=== PATIENT | female | born 1955 | race Caucasian/White ===

== ENCOUNTER 2022-05-25 11:53 | Outpatient (CLI) | payer MEDICARE, SELFPAY ==
[2022-05-25 13:48] LABS: Basophils Absolute Auto 0.06 K/uL (0.00-0.30); Basophils Percent Auto 0.8 % (0.0-3.0); Eosinophils Absolute Auto 0.39 K/uL (0.00-0.50); Hematocrit 44.9 % (33.0-51.0); Hemoglobin* 14.5 gm/dL (12.0-16.0); Immature Granulocytes Abs Auto 0.01 K/uL (0.00-0.30); Lymphocytes Absolute Auto 2.61 K/uL (0.90-2.90); Lymphocytes Percent Auto 33.4 % (20-44); Mean Corpuscular HGB Conc 32 gm/dL (32-36); Mean Corpuscular Hemoglobin 29 pg (26-34); Mean Corpuscular Volume 89 fL (80-100); Monocytes Percent Auto 8.1 % (0.0-11.0); Neutrophils Absolute Auto 4.11 K/uL (1.7-7.0); Neutrophils Percent Auto 52.6 % (42.0-72.0); Platelet Count* 353 K/uL (140-440); RDW Coefficient of Variation % 12.1 % (11.5-15.5); Red Blood Count 5.07 m/uL (4.00-5.20); White Blood Count* 7.81 K/uL (4.50-11.00)
[2022-05-25 13:50] LABS: Appearance Urine Turbid (Clear); Bilirubin Urine Negative (Negative); Blood Urine 2+ (Negative); Color Urine Yellow (Yellow); Glucose Urine Negative (Negative); Ketones Urine Negative (Negative); Leukocyte Esterase Urine Trace (Negative); Nitrite Urine Negative (Negative); Protein Urine Negative (Negative); Specific Gravity Urine >= 1.030 (1.000-1.030); Urobilinogen Urine 0.2 (0.2-1.0); pH Urine 5.5 (5.0-8.5)
[2022-05-25 14:00] LABS: Slide Review Reflex No
[2022-05-25 14:24] LABS: Amorphous Sediment Urine Many; RBC Urine 0-2 (0-2); WBC Urine 0-2 (0-5)
[2022-05-25 14:36] LABS: Erythrocyte SedimentationRate* 7 mm/hr (2-20)
[2022-05-25 15:21] LABS: Chloride* 105 mmol/L (96-114); Potassium* 4.1 mmol/L (3.6-5.1); Sodium* 140 mmol/L (135-149)
[2022-05-25 15:24] LABS: Estimated Glomerular Filt Rate 61.36
[2022-05-25 15:25] LABS: Blood Urea Nitrogen* 16 mg/dL (7-30); Calcium* 9.5 mg/dL (8.4-10.6); Carbon Dioxide* 28 mmol/L (20-32); Glucose* 102 mg/dL (60-115)
[2022-05-25 15:40] LABS: C Reactive Protein* < 0.5 mg/dL (0.5-1.0)
== END 2022-05-25 11:54 | disposition home or self-care (01) ==
PROVIDERS: PCP Family Medicine; Visit Provider Nurse Practitioner Family
DX: R53.83 Other fatigue (principal); R35.0 Frequency of micturition; M79.10 Myalgia, unspecified site; R51.9 Headache, unspecified; R05.9 Cough, unspecified
CPT/HCPCS: 36415; 80048; 81001; 85025; 85651; 86140; 86618; 87086; 87635

== ENCOUNTER 2022-07-12 13:18 | Outpatient (CLI) | payer MEDICARE, SELFPAY ==
--- NOTE | 2022-07-12 13:40 | CRLHL7_ITS ---
For Patients: As a result of the Century Cures Act, medical imaging exams and procedure reports are released immediately into your electronic medical record. You may view this report before your referring provider. If you have questions, please contact your health care provider. BILATERAL SCREENING MAMMOGRAM WITH COMPUTER-AIDED DETECTION AND TOMOSYNTHESIS TECHNIQUE: CC and MLO views were obtained. These mammographic images have been obtained using full-field digital technique. These mammographic images were interpreted with the benefit of computer-aided detection. Breast Tomosynthesis was used in this interpretation. COMPARISON FILM: 07/01/21, 06/30/20, 04/12/19. FINDINGS: The breasts are heterogeneously dense, which may obscure small masses IMPRESSION: There is no radiographic evidence for malignancy. ASSESSMENT: BI-RADS Category 1: Negative RECOMMENDATION: Routine screening mammogram in 1 year. A lay language report of this examination will be provided to the patient. Stevan Sesay M.D. Diagnostic/Musculoskeletal Radiologist [email or web address] RADHA/Dictated by: Stevan Sesay MD @ 07/13/2022 8:14:00 AM (Electronically Signed)
== END 2022-07-12 13:19 | disposition home or self-care (01) ==
LOC: MAMMO 13:21
PROVIDERS: PCP Family Medicine; Visit Provider Family Medicine
DX: Z12.31 Encounter for screening mammogram for malignant neoplasm of breast (principal); R92.2 Inconclusive mammogram
CPT/HCPCS: 77063; 77067

== ENCOUNTER 2022-07-16 08:59 | Outpatient (CLI) | payer MEDICARE, SELFPAY ==
[2022-07-16 11:27] LABS: Cholesterol* 237 mg/dL (90-199); Triglycerides* 220 mg/dL (40-149)
[2022-07-16 11:28] LABS: HDL Cholesterol* 45 mg/dL (>=50); LDL Cholesterol Calculated 148 mg/dL (<100)
== END 2022-07-16 09:00 | disposition home or self-care (01) ==
PROVIDERS: PCP Family Medicine; Visit Provider Family Medicine
DX: E78.5 Hyperlipidemia, unspecified (principal); E03.9 Hypothyroidism, unspecified
CPT/HCPCS: 80061; 84443

== ENCOUNTER 2023-08-12 10:45 | Outpatient (CLI) | payer MEDICARE, SELFPAY | END 2023-08-12 10:46 | disposition home or self-care (01) | PROVIDERS: PCP Family Medicine; Visit Provider Family Medicine | DX: E78.5 Hyperlipidemia, unspecified (principal); E03.9 Hypothyroidism, unspecified | CPT/HCPCS: 80048; 80061; 84439; 84443 ==

== ENCOUNTER 2023-09-12 13:32 | Outpatient (CLI) | payer MEDICARE, SELFPAY ==
--- NOTE | 2023-09-12 13:40 | CRLHL7_ITS ---
For Patients: As a result of the Century Cures Act, medical imaging exams and procedure reports are released immediately into your electronic medical record. You may view this report before your referring provider. If you have questions, please contact your health care provider. BILATERAL SCREENING MAMMOGRAM WITH COMPUTER-AIDED DETECTION AND TOMOSYNTHESIS TECHNIQUE: CC and MLO views were obtained. These mammographic images have been obtained using full-field digital technique. These mammographic images were interpreted with the benefit of computer-aided detection. Breast Tomosynthesis was used in this interpretation. COMPARISON FILM: 07/12/22, 07/01/21, 06/30/20. FINDINGS: There are scattered areas of fibroglandular density IMPRESSION: There is no radiographic evidence for malignancy. ASSESSMENT: BI-RADS Category 2: Benign RECOMMENDATION: Routine screening mammogram in 1 year. A lay language report of this examination will be provided to the patient. Ray Bhakta M.D. Diagnostic Radiologist [email or web address] RADHA/Dictated by: Ray Bhakta MD @ 09/13/2023 12:44:00 PM (Electronically Signed)
== END 2023-09-12 13:33 | disposition home or self-care (01) ==
LOC: MAMMO 13:35
PROVIDERS: PCP Family Medicine; Visit Provider Family Medicine
DX: Z12.31 Encounter for screening mammogram for malignant neoplasm of breast (principal)
CPT/HCPCS: 77063; 77067

== ENCOUNTER 2023-10-07 10:35 | Outpatient (CLI) | payer MEDICARE, SELFPAY | END 2023-10-07 10:36 | disposition home or self-care (01) | PROVIDERS: PCP Family Medicine; Visit Provider Family Medicine | DX: E03.9 Hypothyroidism, unspecified (principal) | CPT/HCPCS: 84443 ==

== ENCOUNTER 2024-03-16 11:49 | Outpatient (CLI) | payer MEDICARE, SELFPAY ==
--- OUTSIDE RECORDS SUMMARY | 2024-03-16 11:52 | XMS_ITS | Clinical Summary ---
Author Name Unknown Organization [facility] Address [place], [place] [address] Care Team Providers Care Gericare Aide Name Role Phone Javon Velazquez MD Primary Care Provider [phone] Allergies Active Allergy Reactions Criticality Noted Date Comments Azithromycin Itching 05/29/2012 Regadenoson Other - Describe In Comment Field 05/29/2012 Heart pounded, felt very unsteady. Consider different stress modes. Medications Medication Sig Dispensed Refills Start Date End Date Status levothyroxine (SYNTHROID) 150 mcg tablet Daily Active glucosamine-chondroit in, 500-400 mg, (COSAMIN DS 500/400) 500-400 mg cap Active Calcium-Cholecalcifer ol, D3, 500 mg(1,250mg) -125 unit tab Daily Active ibuprofen (ADVIL; MOTRIN) 200 mg tablet Every 6 Hours as needed Active multivitamin (MVI) liqd And minerals (through chiropractor) Active Active Problems Problem Noted Date Diagnosed Date Hypothyroidism (acquired) 06/28/2023 Overview: diagnosis late 40's. Chronic low back pain 06/28/2023 Overview: Dr. Torres Sacroiliac joint problems. Primary osteoarthritis of both knees 06/28/2023 Overview: Jun 2023: bilateral knee cortisone injections by Dr. De Jesus. Social History Tobacco Use Types Packs/Day Years Used Date Smoking Tobacco: Former Cigarettes Smokeless Tobacco: Never Tobacco Cessation:Counseling Given: Yes Comments:quit smoking about 40 years ago Alcohol Use Standard Drinks/Week Comments Yes 1 (1 standard drink = 0.6 oz pur e alcohol) Social Connections Answer Date Recorded Frequency of Communication with Friends and Fami ly Not on file 11/14/2021 Financial Resource Strain Answer Date R ecorded Difficulty of Paying Living Expenses Not on file 11/14/2021 Difficulty of Paying Living Expenses Not on file 11/14/2021 Sex and Gender Information Value Date Recorded Sex Assigned at Not on file Gender Identity Not on file Sexual Orientation Not on file Obstetrics History Last Filed Vital Signs Vital Sign Reading Time Taken Comments Blood Pressure 158/85 06/28/2023 11:10 AM CDT recheck BP Pulse 66 06/28/2023 11:10 AM CDT Temperature 36.6 ??C (97.8 ??F) 04/28/2020 9 :22 AM CDT Respiratory Rate - - Oxygen Saturation 95% 06/28/2023 11: 08 AM CDT Inhaled Oxygen Concentration - - Weight 96.9 kg (213 lb 9.6 oz) 06/28/20 11:08 AM CDT Height 161.9 cm (5' 3.74) 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 Body Mass Index 36.96 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 Plan of Treatment Health Maintenance Due Date Last Done Comments Tdap 1965 Depression screening for age 12+ 1966 Hepatitis C screening for ag e 18-79 1972 Tetanus booster 1974 Colonoscopy through age 75 1999 Lipids for age 45-75 1999 Mammogram for age 45-75 1999 Zoster (shingles) series for age 50+ (1 of 2) 2004 DEXA/DXA scan for age 65+ 2019 Medicare Wellness for age 65+ 2019 Pneumococcal series for age 65+ (1 of 1 - PCV) 2019 BMI (ht and wt on same day) for age 18+ 12/07/2020 12/07/2019 COVID-19 vaccine series (2022- season) 2023 08/17/2022, 02/22/2022, 08/28/2021, Additional history exists Influenza for age 65+ 07/15/2024 Care Teams Gericare Aide Relationship Specialty Start Date End Date Javon Velazquez MD [address] [place] [address] PCP - General Family Practice 12/11/19
== END 2024-03-16 11:50 | disposition home or self-care (01) ==
LOC: NFLDREF 11:50
PROVIDERS: PCP Family Medicine; Visit Provider Family Medicine
DX: I10 Essential (primary) hypertension (principal)
CPT/HCPCS: 80048

== ENCOUNTER 2024-04-04 06:20 | Day surgery (SDC) | payer MEDICARE, SELFPAY ==
[2024-04-04] VITALS (22 sets, daily range): BP systolic 88–141; BP diastolic 46–89; PULSE 60–81; RESP 13–18; TEMP 35.4–37.4; O2SAT 91–97; BMI 35.9
--- OUTSIDE RECORDS SUMMARY | 2024-04-04 06:23 | XMS_ITS | Clinical Summary ---
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
[2024-04-04] MEDS: LACTATED RINGERS 1000 ML 1,000 ML 100 ML IV ×2 (06:30→08:21)
[2024-04-04] MEDS: CELECOXIB 200 MG CAPSULE PO (07:15)
[2024-04-04] MEDS: ACETAMINOPHEN 500 MG TABLET 1000 MG PO ×2 (07:15→17:43)
[2024-04-04] MEDS: OXYCODONE (CR) 10 MG TAB.ER.12H PO (07:15)
--- NOTE | 2024-04-04 07:19 | W.PM.H&PU ---
History & Physical Update History & Physical Update H&P Reviewed and patient assessed: No changes noted
--- NOTE | 2024-04-04 07:21 | PM.ORPRC ---
Procedure Note Date of procedure: 04/04/24 Procedure: PREOPERATIVE DIAGNOSIS: 1. Right knee osteoarthritis POSTOPERATIVE DIAGNOSES: 1. Right knee osteoarthritis PROCEDURE: 1. Right total knee arthroplasty SURGEON: Emil Muse MD GASOLINE CATALYST OPERATOR: Sarah Hernandez P.A.-C. An assistant to the dean was critical for this case to aide in patient positioning, suture manipulation, arm positioning, instrument positioning, and closure. ANESTHESIA: Spinal with adductor canal in geniculate blocks IMPLANTS: DePuy Attune femoral posterior stabilized component size 5, DePuy Attune tibial base rotating platform size 5, DePuy Attune tibial insert rotating platform posterior stabilized polyethylene size 5 mm, and an Attune patella medialized dome size 35 mm. EBL: 50 ml COMPLICATIONS: None evident INDICATIONS: Lupe is a 69-year-old female who has chronic knee pain secondary to osteoarthritis. Symptoms have worsened despite non operative treatment . Patient is now interested in proceeding with total knee arthroplasty for improved function, decreased pain and better quality of life. Prior to the procedure, risks and benefits of the operative and non operative treatment were discussed with patient. After discussion of risks, benefits, and alternatives of surgery, informed consent was obtained and the operative site was marked. FINDINGS: Moderate to severe Tricompartmental degenerative changes, worse in the medial compartment. PROCEDURE: Patient was seen preoperatively and operative site was marked. Abductor and geniculate nerve blocks were performed by anesthesia staff. Patient was then brought to the operating room, where spinal anesthesia was administered by the anesthesia staff. Patient was then placed into the supine position on the OR table and all bony prominences were well padded. Preoperative prophylactic antibiotics were administered intravenously. A tourniquet was placed on the thigh of the operative leg. The right lower extremity was prepped and draped in usual sterile fashion. A surgical time-out was performed confirming patient identity, surgical procedure, and surgical site. Operative extremity was elevated and exsanguinated with an Esmarch and tourniquet was inflated to 250 mmHg. The tourniquet remained inflated for 73 minutes before it was deflated. An anterior longitudinal incision was made and carried down through the subcutaneous tissues. The quadriceps tendon, medial patellar retinaculum, and patellar tendon were visualized. A medial quadriceps splitting parapatellar arthrotomy was performed. The proximal medial tibia was subperiosteal exposed distal to the joint line. The retropatellar fat pad was excised. The knee was flexed and patella everted. A curved osteotome was used to enter the semimembranous bursa medially at the level of the joint line. Medial and lateral tibial plateau osteophytes were removed with a rongeur. The medial meniscus was excised at the meniscal synovial junction. The anterior cruciate ligament was excised. A Z-retractor was placed medially and a right angle Hohmann retractor was placed anterior lateral to the lateral meniscus. A partial lateral meniscectomy was performed. The intramedullary drill was utilized to open the intramedullary canal. ?Intramedullary alignment guide was inserted. The distal femoral cutting block, set at 5 degrees of valgus with a distal femoral resection of 9 mm, was secured with pins, and the distal femoral osteotomy was performed. ?Using the posterior condylar referencing guide, femur was sized to a size 5, and pins were drilled for 3 degrees of external rotation, which corresponded with Whitesides line and the epicondylar axis. ?A 4-in-1 cutting jig was inserted at 3 degrees of external rotation. ?The anterior and posterior condylar cuts were performed followed by anterior and posterior chamfer cuts. The box cutting guide was then secured to the distal femur with pins and the box osteotomy was performed. ? ? We then turned our attention back to the tibia. ?Ranasall maneuver was performed and remainder of the lateral meniscus, medial meniscus, and PCL were excised. ?A retractor was placed along the posterior tibia. ?Extramedullary guide was secured around the ankle in line with the subcutaneous tibial crest. ?The tibial cutting block, set to remove 9 mm of bone from medial tibial plateau and for mm of bone from lateral tibial plateau, was secured proximally with pins. ?Tibial osteotomy was performed with care taken to protect the collateral ligaments. ?Spacer blocks were inserted, which confirmed symmetric flexion and extension gaps.?The tibia was then sized to a size 5, and tibial base plate was secured. Tibia was then prepped with the appropriate drill and punch. Trial femur and tibial components with a 5 mm tibial polyethylene component were inserted. The knee was then brought out to full extension. ?The patella was everted and osteochondral junction was exposed. ?The patella measured 22 mm in thickness. ?The patellar osteotomy was performed, leaving 14 mm of remnant patella. ?Three lug holes were drilled for the 35 mm patella button and the patella button was inserted. The knee was brought through a full range of motion. ?Soft tissue tension, collateral ligament stability, and patella tracking were confirmed to be satisfactory. ?Trial components were then removed. ??After removing the trial components, a bone plug was placed in the distal femur. The exposed bony surfaces of the tibia, femur, and patella were then thoroughly irrigated with pulse lavage and dried. ? Cement was mixed on the back table and was subsequently introduced onto the tibia and tibial base plate. ?Tibial base plate was then impacted into position, and extruded cement was removed. ?Cement was then applied to the distal femur and posterior condyles of the femoral prosthesis. ?The femoral prosthesis was impacted into position, extruded cement was removed, and a trial polyethylene was inserted. ?Knee was then brought out to full extension for remainder of drying. ?Cement was then applied to the patella and patellar button. The patella button was clamped into position, and extruded cement was removed. ?While the cement was drying, knee was soaked in a sterile iodine solution. ? After the cement had dried, the knee was flexed. ?Trial tibial component was removed, and a formal size 5, 5 mm rotating platform posterior stabilized polyethylene was then secured into position. ? The tourniquet was then released. ?Hemostasis was achieved with electrocautery. ?The knee was thoroughly irrigated with pulse lavage. ?The parapatellar arthrotomy was closed with #1 Vicryl and #1 Stratafix sutures. ?Subcutaneous layers were closed with 2-0 Vicryl and skin was closed with 3-0 Monocryl subcuticular stitch. ?The incision was then sealed with Dermabond and sterile dressing was applied. ?The patient was then transferred to the recovery room in stable condition. POSTOPERATIVE PLAN: 1. Patient will be admitted to the hospital, where she will follow the postoperative total knee arthroplasty protocol. 2. Mobilize with physical therapy and occupational therapy. - Weight bear as tolerated right lower extremity. 3. Pain control: -Acetaminophen and Oxycodone for pain as needed. -IV pain medications for breakthrough pain -Ice for pain and swelling 4. Postoperative prophylactic antibiotics x2 doses 5. DVT prophylaxis: - aspirin 81 mg b.i.d. for 35 days - SCDs 6. Follow-up in Orthopedic Clinic in 1-2 weeks.
[2024-04-04] MEDS: fentaNYL 100 MCG/2 ML inj IVP (07:32)
[2024-04-04] MEDS: MIDAZOLAM HCL 1 MG/ML inj IVP (07:33)
--- NOTE | 2024-04-04 07:34 | SUR.PREOP ---
TIME?OUT:? 0730 PT/RN/MDA?VERIFICATION?OF?SURGICAL?SITE,?PROCEDURE,?AND?CONSENT OBTAINED?PRIOR?TO?INVASIVE?PROCEDURE.
[2024-04-04] MEDS: TRANEXAMIC ACID 100 MG/ML INJ 1000 MG IV (07:59)
[2024-04-04] MEDS: CEFAZOLIN 2 GM INJ IVP (07:59)
--- NOTE | 2024-04-04 09:38 | W.PM.NB ---
Nerve Block Nerve Block Time Seen by Provider: 07:32 Date Seen: 04/04/24 Type of block requested by surgeon for post-operative analgesia: adductor canal Side: right Time out performed: Yes Verification of patient name: Yes Verification of date of : Yes Site marking: site marked Name of person performing procedure: Scot Continuous monitoring Was continuous monitoring of O2 sat, B/P, senior technical architect, recorded every 15 minutes?: Yes Procedure Checklist: sterile prep, needles and gloves Ultrasound guided. Images saved: Yes Medications given in 5ml increments after negative aspiration: Ropivicaine %: 0.5 mL: 20 Needle gauge: 20 Decadron (mg): 10 Precedex (mcg): 25 Patient tolerated procedure well: Yes Additional comments: Needle noted adjacent to nerve Block Charges Block Charge (with Pro Fee): Femoral Nerve Use of Ultrasound Machine for Block: Yes- US Guidance/pain block
--- NOTE | 2024-04-04 09:39 | W.PM.NB ---
Nerve Block Nerve Block Time Seen by Provider: 07:32 Date Seen: 04/04/24 Type of block requested by surgeon for post-operative analgesia: geniculars Side: right Time out performed: Yes Verification of patient name: Yes Verification of date of : Yes Site marking: site marked Name of person performing procedure: Scot Continuous monitoring Was continuous monitoring of O2 sat, B/P, lunchroom monitor, recorded every 15 minutes?: Yes Procedure Checklist: sterile prep, needles and gloves Medications given in 5ml increments after negative aspiration: Ropivicaine %: 0.5 mL: 9 Needle gauge: 25 Patient tolerated procedure well: Yes Block Charges Block Charge (with Pro Fee): Genicular Nerve Block Use of Ultrasound Machine for Block: No
--- NOTE | 2024-04-04 09:39 | W.ANESCHARGE ---
Anesthesia Charges Start Date/Time Anesthesia Start Date: 04/04/24 Anesthesia Start Time: 07:35 Stop Date/Time Anesthesia Stop Date: 04/04/24 Anesthesia Stop Time: 10:22 Summary Extremes of Age - Over 70 or under 1: MDA
--- NOTE | 2024-04-04 10:03 | XR_ITS ---
Patient: LUCI NAVARRETE Facility:?[facility] Patient ID:?[id number] Site Patient ID:?[id number]. Site :?[id number] Study:?XRay-Extremity Right KNEE 2V-04/04/2024 10:40:36 AM Ordering Physician:LOREN Final Report: Indication: Postop Technique: Two views right knee Findings/Impression: Hardware from a right total knee arthroplasty is in satisfactory position. Bone alignment is normal. No sign of acute fracture. Postop changes are within normal limits. Dictated by Ray Bhakta MD @ 04/04/2024 12:04:12 PM Signed by:?Ray Bhakta MD @04/04/2024 12:04:12 PM (Electronic Signature)
--- NOTE | 2024-04-04 10:25 | W.ANESCHARGE ---
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
--- NOTE | 2024-04-04 10:57 | SUR.PHASEI ---
patient met pacu d/c criteria
[2024-04-04] MEDS: LACTATED RINGERS 1000 ML 1,000 ML 75 ML IV (11:12)
[2024-04-04] MEDS: OXYCODONE 5 MG TABLET PO ×2 (12:26→21:08)
[2024-04-04] MEDS: CEFAZOLIN 2 GM in 0.9 % SODIUM CHLORIDE Mini-bag 100 ML IVPB ×2 (14:28→21:11)
--- NOTE | 2024-04-04 16:04 | PM.IMCN1 ---
Date of Consult Consult date: 04/04/24 Requesting Physician: Orthopedics Primary Care Provider: Ray Gomez MD Consult Narrative Narrative: HOSPITALIST CONSULT PROCEDURE: Right total knee arthroplasty SURGEON: Emil Muse MD ANESTHESIA: Spinal with adductor canal in geniculate blocks EBL: 50 ml COMPLICATIONS: None evident The hospital medicine team was asked by the orthopedic surgery team to manage the patient's HTN and hypothyroidism. There have been no perioperative complications. Updated and reviewed the active medical problems, past medical history, past surgical history, social history, allergies and medications in our electronic EMR. PHYSICAL EXAM: CODE STATUS: FULL CODE CONSTITUTIONAL: Conversive, good historian. A/O. Knows setting and context. VITAL SIGNS: see record. HEENT: Normocephalic, atraumatic. PERRL, EOMI, conjunctivae pink, no scleral icterus. Ears and nose externally normal. Pharynx normal. NECK: No JVD. No carotid bruit, no thyromegaly, no adenopathy. CHEST: Clear to auscultation bilaterally HEART: S1 and S2 normal. ABDOMEN: Flat, soft, nontender. Normal bowel sounds. Moderately obese. EXTREMITIES: No edema. MUSCULOSKELETAL: right knee SDI. NEURO: Cranial nerves intact. Mentation normal. Normal affect. SKIN: No rashes, petechiae, concerning changes PSYCHIATRIC: Mentation normal. INVESTIGATIONS: EMR Reviewed; Pre-OP Reviewed DISPOSITION: DVT: Agree with Ortho team decision GI: PO intake [facility] Medical History (Updated 04/04/24 @ 16:12 by Mandy Muse MD) Obesity (BMI 35.0-39.9 without comorbidity) ?E66.9 - Obesity, unspecified (ICD-10) Mixed hyperlipidemia ?E78.2 - Mixed hyperlipidemia (ICD-10) Primary hypertension ?I10 - Essential (primary) hypertension (ICD-10) Bilateral primary osteoarthritis of knee ?M17.0 - Bilateral primary osteoarthritis of knee (ICD-10) Sacroiliac joint dysfunction ?M53.3 - Sacrococcygeal disorders, not elsewhere classified (ICD-10) Osteopenia ?M85.80 - Other specified disorders of bone density and structure, unspecified site (ICD-10) Insomnia ?G47.00 - Insomnia, unspecified (ICD-10) Hypothyroidism ?E03.9 - Hypothyroidism, unspecified (ICD-10) Chronic low back pain ?M54.50 - Low back pain, unspecified (ICD-10) ?G89.29 - Other chronic pain (ICD-10) Allergic rhinitis ?J30.9 - Allergic rhinitis, unspecified (ICD-10) Surgical History (Updated 04/04/24 @ 16:12 by Mandy Muse MD) Status post total right knee replacement ?Z96.651 - Presence of right artificial knee joint (ICD-10) History of shoulder surgery (2000) ?Z98.890 - Other specified postprocedural states (ICD-10) History of endometrial ablation (10/02/08) ?Z98.890 - Other specified postprocedural states (ICD-10) History of appendectomy (1967) ?Z90.49 - Acquired absence of other specified parts of digestive tract (ICD-10) Family History (Updated 09/11/23 @ 21:09 by Ray Gomez MD) Father Stroke Mother Uterine cancer Sister Heart disease Brother High blood pressure Social History (Updated 08/12/23 @ 09:53 by Lindy Clark ~ [facility]) Narrative: Single, 2 kids, retired Non-smoker Social EtOH What is your current living situation?: I presently have a place to live Problems where you live: no known problems In the past 12 months, utilities in danger of being shut off: no In past 12 months, lack of transportation kept you from medical appts, meetings, work, or getting things needed for daily living: no In the past 12 mos, have been you worried that your food would run out before you had money to buy more?: never true In the past 12 mos, the food you bought just didn't last and you didn't have money to buy more?: never true Smoking Status: Former smoker (over 30 years ago) How often does anyone, including family, friends and others, physically hurt you: never How often does anyone, including family, friends and others, insult or talk down to you: never How often does anyone, including family, friends and others, threaten you with harm: never How often does anyone, including family, friends and others, scream or curse at you: never Little interest or pleasure in doing things: not at all Feeling down, depressed, or hopeless: not at all Meds Home Medications and Allergies Home Medications ?Medication ?Instructions ?Recorded ?Confirmed ?Type calcium carbonate 500 mg-vitamin 1 tab PO DAILY 05/13/22 04/04/24 History D3 3.125 mcg (125 unit) tablet multivitamin 1 tab PO DAILY 03/16/24 04/04/24 History losartan 50 mg-hydrochlorothiazide 1 tab PO DAILY 04/04/24 04/04/24 History 12.5 mg tablet Allergies Allergy/AdvReac Type Severity Reaction Status Date / Time erythromycin base Allergy Severe Nausea Verified 04/04/24 07:54 propylene glycol Allergy Severe Nausea Verified 04/04/24 07:54 edetic acid Allergy Nausea Verified 04/04/24 07:54 Exam Const: Vital Signs, click to edit/add: Vital Signs - 24 hr 04/04/24 07:07 04/04/24 07:33 04/04/24 10:19 Temperature 99.4 F 97.4 F L Pulse Rate 70 68 72 Respiratory Rate 16 16 13 Blood Pressure 141/81 H 138/78 94/52 L Pulse Oximetry 94 96 94 Oxygen Delivery Me thod Room Air Nasal Cannula Nasal Cannula Oxygen Flow Rate 3 1 04/04/24 10:25 04/04/24 10:30 04/04/24 10:35 Temperature Pulse Rate 81 71 67 Respiratory Rate 17 18 16 Blood Pressure 95/57 L 89/62 L 96/58 L Pulse Oximetry 91 93 92 Oxygen Delivery Me thod Nasal Cannula Oxygen Flow Rate 1 04/04/24 10:40 04/04/24 10:45 04/04/24 10:54 Temperature 97.9 F 96.0 F L Pulse Rate 68 71 66 Respiratory Rate 16 14 14 Blood Pressure 88/54 L 99/63 103/63 Pulse Oximetry 93 92 95 Oxygen Delivery Me thod Nasal Cannula Nasal Cannula Oxygen Flow Rate 1 1 04/04/24 11:00 04/04/24 11:15 04/04/24 11:30 Temperature 95.7 F L 96.1 F L Pulse Rate 65 68 66 Respiratory Rate 15 16 Blood Pressure 103/68 107/73 105/62 Pulse Oximetry 93 94 94 Oxygen Delivery Me thod Nasal Cannula Nasal Cannula Nasal Cannula Oxygen Flow Rate 1 1 1 04/04/24 11:45 04/04/24 12:00 04/04/24 12:30 Temperature 96.4 F L 96.5 F L Pulse Rate 76 65 72 Respiratory Rate 16 16 Blood Pressure 108/68 114/62 109/69 Pulse Oximetry 95 96 Oxygen Delivery Me thod Nasal Cannula Nasal Cannula Nasal Cannula Oxygen Flow Rate 1 1 1 04/04/24 13:30 04/04/24 14:30 04/04/24 15:00 Temperature 96.1 F L 96.9 F L Pulse Rate 62 68 Respiratory Rate 16 18 Blood Pressure 101/46 L 115/89 Pulse Oximetry 93 97 94 Oxygen Delivery Me thod Nasal Cannula Room Air Oxygen Flow Rate 1 04/04/24 15:00 04/04/24 15:30 Temperature 96.8 F L Pulse Rate 71 Respiratory Rate 18 Blood Pressure 139/72 Pulse Oximetry 97 97 Oxygen Delivery Me thod Room Air Room Air Oxygen Flow Rate Assessment and Plan Assessment and plan (1) Status post total right knee replacement: Problem comment: 04/04/24 Dr. Muse -Hospitalist happy to follow thru to discharge. We will hold on her antihypertensives POD1. Expect a routine post op course. Status: Acute (2) Obesity (BMI 35.0-39.9 without comorbidity): Status: Acute (3) Primary hypertension: Problem comment: losartan-hctz 50/12.5 (hold POD1) Status: Acute (4) Hypothyroidism: Problem comment: synthroid replacement Status: Acute
--- NOTE | 2024-04-04 18:31 | PC.NURSE ---
[End of Shift Nursing Note]: Patient arrived to med-surg unit at 11:00 AM post-operatively from R) knee replacement. Patient doing very well with recovery and is recovering as anticipated. Acute pain managed effectively with PRN Oxycodone and scheduled Tylenol. R) knee incision dressing C/D/I. Patient ambulating with AX1 and walker. Patient will likely DC home tomorrow. Will continue to implement ongoing plan of care.
[2024-04-04] MEDS: SENNOSIDES 1 TAB TABLET 2 TAB PO (21:09)
[2024-04-04] MEDS: ASPIRIN 81 MG TABLET EC PO (21:09)
[2024-04-05] MEDS: ACETAMINOPHEN 500 MG TABLET 1000 MG PO ×2 (01:45→06:17)
[2024-04-05 01:47] VITALS: BP 151/71; PULSE 70; RESP 18; TEMP 36.3; O2SAT 96
--- NOTE | 2024-04-05 05:09 | PC.NURSE ---
Shift note: Pt is doing well with A1, walker and GB. Pt had enough urine output and saline locked. Pain level has been rated between 3 and 8. 1x PRN oxycodone given. Pt had adequate sleep. Dressing appeared clean and dry. Vitally stable, lungs sound clear. Pt tolerated regular diet well. Pt passed gas but no BM. Treatment given as prescribed.
[2024-04-05] MEDS: CEFAZOLIN 2 GM in 0.9 % SODIUM CHLORIDE Mini-bag 100 ML IVPB (06:17)
[2024-04-05] MEDS: LEVOTHYROXINE 125 MCG TABLET PO (06:17)
[2024-04-05 06:54] LABS: Hematocrit 34.1 % (33.0-51.0); Hemoglobin* 11.3 gm/dL (12.0-16.0); Immature Granulocytes Pct Auto 0.3 %; Lymphocytes Percent Auto 9.6 % (20-44); Mean Corpuscular HGB Conc 33 gm/dL (32-36); Mean Corpuscular Hemoglobin 29 pg (26-34); Mean Corpuscular Volume 88 fL (80-100); Monocytes Percent Auto 8.4 % (0.0-11.0); Neutrophils Percent Auto 81.7 % (42.0-72.0); Platelet Count* 284 K/uL (140-440); RDW Coefficient of Variation % 12.4 % (11.5-15.5); Red Blood Count 3.89 m/uL (4.00-5.20); White Blood Count* 15.18 K/uL (4.50-11.00)
[2024-04-05 07:06] LABS: Potassium* 3.8 mmol/L (3.6-5.1); Sodium* 134 mmol/L (135-149)
[2024-04-05 07:09] LABS: Blood Urea Nitrogen* 21 mg/dL (7-30); Creatinine* 0.8 mg/dL (0.5-1.5); Estimated Glomerular Filt Rate 79 ml/min
[2024-04-05 07:11] LABS: Slide Review Reflex No
[2024-04-05 07:44] VITALS: O2SAT 95
[2024-04-05 07:45] VITALS: BP 129/62; PULSE 66; RESP 18; TEMP 36.1; O2SAT 95
[2024-04-05 07:46] VITALS: PULSE 66; RESP 18
--- NOTE | 2024-04-05 08:25 | P.ORPN_ITS ---
Subjective Subjective Time Seen by Provider: 08:10 Date Seen: 04/05/24 Principal diagnosis: Day 1 s/p right total knee arthroplasty Interval history: Ghulam is is doing well this morning and is resting comfortably in her recliner. present during this visit. She c/o mild right knee pain; ranks 2/10. Pain is well managed with current scheduled and PRN oral pain medications and ice. Denies: fever, chills, body aches, chest pain, SOB, lightheadedness, dizziness. Patient has not yet been seen by Physical Therapy, but reports getting up and walking around her room has been going well. Patient has not yet had a bowel movement, but admits to flatulence. Ghulam explains her regular bowel movement schedule is every other day. Patient feels ready to be discharged to home later this afternoon. No acute events over night. Ortho Exam Narrative Exam Narrative: Incision/Dressing: Dressing appears clean and dry. No drainage present. Mepilex intact. Right knee appears moderately swollen but supple with no obvious erythema, fluctuance or excessive warmth. Ecchymosis present in various areas surrounding Mepliex dressing. Warmth around the wound is appropriate. Ice is being utilized as needed. CMS: Intact distally with 2+ Dorsalis pedis and Posterior Tibial pulses. 5/5 motor strength dorsal and plantar flexion. Confirmed sensation distally. Intact straight leg raise. Calf: Bilateral calves are supple, with no swelling, pain, tenderness, erythema, discoloration or coolness to the touch. Constitutional: Patient is alert and oriented x3. Patient is in no acute distress and converses without labored breathing. Patient is able to make decisions and demonstrates good insight. Patient is pleasant and cooperative. Affect is full range and appropriate for the circumstances. Const Vital Signs, click to edit/add: Vital Signs - 24 hr 04/04/24 10:19 04/04/24 10:25 04/04/24 10:30 Temperature 97.4 F L Pulse Rate 72 81 71 Pulse Rate [Left Pulse Oximeter] Respiratory Rate 13 17 18 Blood Pressure 94/52 L 95/57 L 89/62 L Blood Pressure [Right Arm] Pulse Oximetry 94 91 93 Oxygen Delivery Method Nasal Cannula Nasal Cannula Oxygen Flow Rate 1 1 04/04/24 10:35 04/04/24 10:40 04/04/24 10:45 Temperature 97.9 F Pulse Rate 67 68 71 Pulse Rate [Left Pulse Oximeter] Respiratory Rate 16 16 14 Blood Pressure 96/58 L 88/54 L 99/63 Blood Pressure [Right Arm] Pulse Oximetry 92 93 92 Oxygen Delivery Method Nasal Cannula Oxygen Flow Rate 1 04/04/24 10:54 04/04/24 11:00 04/04/24 11:15 Temperature 96.0 F L 95.7 F L Pulse Rate 66 65 68 Pulse Rate [Left Pulse Oximeter] Respiratory Rate 14 15 Blood Pressure 103/63 103/68 107/73 Blood Pressure [Right Arm] Pulse Oximetry 95 93 94 Oxygen Delivery Method Nasal Cannula Nasal Cannula Nasal Cannula Oxygen Flow Rate 1 1 1 04/04/24 11:30 04/04/24 11:45 04/04/24 12:00 Temperature 96.1 F L 96.4 F L 96.5 F L Pulse Rate 66 76 65 Pulse Rate [Left Pulse Oximeter] Respiratory Rate 16 16 16 Blood Pressure 105/62 108/68 114/62 Blood Pressure [Right Arm] Pulse Oximetry 94 95 96 Oxygen Delivery Method Nasal Cannula Nasal Cannula Nasal Cannula Oxygen Flow Rate 1 1 1 04/04/24 12:30 04/04/24 13:30 04/04/24 14:30 Temperature 96.1 F L 96.9 F L Pulse Rate 72 62 68 Pulse Rate [Left Pulse Oximeter] Respiratory Rate 16 18 Blood Pressure 109/69 101/46 L 115/89 Blood Pressure [Right Arm] Pulse Oximetry 93 97 Oxygen Delivery Method Nasal Cannula Nasal Cannula Room Air Oxygen Flow Rate 1 1 04/04/24 15:00 04/04/24 15:00 04/04/24 15:30 Temperature 96.8 F L Pulse Rate 71 Pulse Rate [Left Pulse Oximeter] Respiratory Rate 18 Blood Pressure 139/72 Blood Pressure [Right Arm] Pulse Oximetry 94 97 97 Oxygen Delivery Method Room Air Room Air Oxygen Flow Rate 04/04/24 16:30 04/04/24 19:00 04/04/24 22:09 Temperature 96.5 F L 97.1 F L Pulse Rate 71 Pulse Rate [Left Pulse Oximeter] 70 Respiratory Rate 18 18 Blood Pressure 130/62 Blood Pressure [Right Arm] 139/78 Pulse Oximetry 95 96 94 Oxygen Delivery Method Room Air Room Air Oxygen Flow Rate 04/04/24 22:09 04/04/24 22:09 05/22/24 22:09 Temperature 97.9 F Pulse Rate Pulse Rate [Left Pulse Oximeter] 60 60 Respiratory Rate 18 18 18 Blood Pressure Blood Pressure [Right Arm] 109/58 L Pulse Oximetry 94 94 Oxygen Delivery Method Room Air Room Air Oxygen Flow Rate 04/05/24 01:47 04/05/24 07:44 04/05/24 07:45 Temperature 97.4 F L Pulse Rate Pulse Rate [Left Pulse Oximeter] 70 Respiratory Rate 18 18 Blood Pressure Blood Pressure [Right Arm] 151/71 H Pulse Oximetry 96 95 95 Oxygen Delivery Method Room Air Room Air Oxygen Flow Rate 04/05/24 07:45 04/05/24 07:46 Temperature 97.0 F L Pulse Rate Pulse Rate [Left Pulse Oximeter] 66 66 Respiratory Rate 18 18 Blood Pressure Blood Pressure [Right Arm] 129/62 Pulse Oximetry 95 Oxygen Delivery Method Room Air Oxygen Flow Rate Assessment and Plan Assessment and plan (1) Status post total right knee replacement: Problem details: 04/04/24 Dr. Muse Status: Acute Assessment and Plan: - Complete 23 hour perioperative antibiotics. - PT/OT consults for education and assistance. Outpatient PT is scheduled to begin next week at [facility]. - Weight bear as tolerated with a walker for assistance. - Prescribed analgesics as needed. Patient is content with current narcotic medications. Minimize narcotic pain medication use; wean off and discontinue as soon as possible. - DVT prophylaxis: aspirin 81 mg BID x 35 days. Also encouraged frequent ambulation and ankle pumps when sedentary. - Social consult for discharge planning. - Anticipate patient will be discharged to home today if the patient remains medically stable, pain is controlled and is safe with ambulation. - Return to clinic in 1 week for a wound check. Mepilex dressing will be removed at this appointment. Remove sooner if dressing becomes saturated. - Return to clinic in [address] Hill. - Phone Orthopedics with any questions or concerns. [phone]
[2024-04-05] MEDS: OXYCODONE 5 MG TABLET PO (08:31)
[2024-04-05] MEDS: SENNOSIDES 1 TAB TABLET 2 TAB PO (08:31)
[2024-04-05] MEDS: ASPIRIN 81 MG TABLET EC PO (08:31)
--- NOTE | 2024-04-05 10:32 | PC.NURSE ---
Discharge. Pt is very pleasant. pain is 3-4/10 she is getting po pain meds. she is up with A1, walker and GB. Dressing is C/D/I. active ice to the knee. she is eating, drinking and voiding. SL was d/c intact. discharge packet is done. went over all parts. pt went over and signed personal belonging sheet. she got a w/c ride out with all belongings and paperwork.
--- NOTE | 2024-04-05 10:42 | PC.SOCIAL ---
Discharge planning: take off worker met with pt and her today to talk about discharging home today. Pt said she feels good about going home with her after surgery. Pt said she also has a daughter that lives close by who will also be supportive and helpful. Social work to follow-up as needed.
== END 2024-04-05 10:35 | disposition home or self-care (01) ==
LOC: OR 06:21 → MEDSURG 06:26
PROVIDERS: PCP Family Medicine; Visit Provider Orthopaedic Surgery
PROC: (CPT 27447; principal; 2024-04-04 07:30)
DX: M17.11 Unilateral primary osteoarthritis, right knee (principal); G89.18 Other acute postprocedural pain; E66.9 Obesity, unspecified; I10 Essential (primary) hypertension; E03.9 Hypothyroidism, unspecified; E78.2 Mixed hyperlipidemia; Z68.35 Body mass index [BMI] 35.0-35.9, adult
CPT/HCPCS: 27447; 01402; 36415; 64447; 64454; 73560; 76942; 82565; 84132; 84295; 84520; 85025; 94761; 97110; 97116; 97161; 97165; 97530; 97535; 99100; A9270; C1713; C1776; J0690; J1100; J2250; J2371; J2704; J2795; J3010; J7120

== ENCOUNTER 2024-04-17 11:16 | Outpatient (CLI) | payer MEDICARE, SELFPAY ==
--- OUTSIDE RECORDS SUMMARY | 2024-04-17 11:18 | XMS_ITS | Clinical Summary ---
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
--- NOTE | 2024-04-17 11:30 | CRLHL7_ITS ---
For Patients: As a result of the Century Cures Act, medical imaging exams and procedure reports are released immediately into your electronic medical record. You may view this report before your referring provider. If you have questions, please contact your health care provider. INDICATION: Leg pain and swelling TECHNIQUE: Ultrasound venous duplex lower right extremity. Compression venous exam was performed using bear-scale, color Doppler, and spectral Doppler imaging. COMPARISON: None. FINDINGS: Sonographic imaging demonstrates the right common femoral, deep femoral, superficial femoral, popliteal, posterior tibial and greater saphenous and the contralateral left common femoral veins to be fully compressible with normal color Doppler blood flow. IMPRESSION: Normal right lower extremity venous ultrasound, no sign of deep venous thrombosis. Dictated by Taz Reyes MD @ 04/17/2024 12:13:36 PM (Electronically Signed)
== END 2024-04-17 11:17 | disposition home or self-care (01) ==
PROVIDERS: PCP Family Medicine; Visit Provider Physician Assistant Surgical
DX: M79.604 Pain in right leg (principal); R22.41 Localized swelling, mass and lump, right lower limb; Z96.651 Presence of right artificial knee joint
CPT/HCPCS: 93971

== ENCOUNTER 2024-06-27 11:02 | Outpatient (CLI) | payer MEDICARE, SELFPAY ==
--- OUTSIDE RECORDS SUMMARY | 2024-06-27 11:17 | XMS_ITS | Clinical Summary ---
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
== END 2024-06-27 11:03 | disposition home or self-care (01) ==
PROVIDERS: PCP Family Medicine; Visit Provider Family Medicine
DX: Z01.818 Encounter for other preprocedural examination (principal); E03.9 Hypothyroidism, unspecified; I10 Essential (primary) hypertension; E66.9 Obesity, unspecified
CPT/HCPCS: 80048; 80061; 84443; 85025

== ENCOUNTER 2024-07-11 06:34 | Day surgery (SDC) | payer MEDICARE, SELFPAY ==
[2024-07-11] VITALS (23 sets, daily range): BP systolic 109–151; BP diastolic 59–86; PULSE 62–78; RESP 14–18; TEMP 35.7–36.7; O2SAT 90–99; BMI 36.8
--- OUTSIDE RECORDS SUMMARY | 2024-07-11 06:37 | XMS_ITS | Clinical Summary ---
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
[2024-07-11] MEDS: LACTATED RINGERS 1000 ML 1,000 ML 100 ML IV ×2 (06:40→08:30)
[2024-07-11] MEDS: CELECOXIB 200 MG CAPSULE PO ×2 (07:15→20:18)
[2024-07-11] MEDS: ACETAMINOPHEN 500 MG TABLET 1000 MG PO ×2 (07:21→22:17)
[2024-07-11] MEDS: OXYCODONE (CR) 10 MG TAB.ER.12H PO (07:21)
--- NOTE | 2024-07-11 07:22 | W.PM.H&PU ---
History & Physical Update History & Physical Update H&P Reviewed and patient assessed: No changes noted
--- NOTE | 2024-07-11 07:22 | PM.ORPRC ---
Procedure Note Date of procedure: 07/11/24 Procedure: PREOPERATIVE DIAGNOSIS: 1. Left knee osteoarthritis POSTOPERATIVE DIAGNOSES: 1. Left knee osteoarthritis PROCEDURE: 1. Left total knee arthroplasty SURGEON: Emil Muse MD PRN PHYSICAL THERAPIST: Lonny Marinelli P.A.-C. An assistant farm operations manager was critical for this case to aide in patient positioning, suture manipulation, arm positioning, instrument positioning, and closure. ANESTHESIA: Spinal IMPLANTS: DePuy Attune femoral posterior stabilized component size 5, DePuy Attune tibial base rotating platform size 5, DePuy Attune tibial insert rotating platform posterior stabilized polyethylene size 5 mm, and an Attune patella medialized dome size 35 mm. EBL: 50 ml COMPLICATIONS: None evident INDICATIONS: Lupe is a 69-year-old female who has chronic knee left pain secondary to osteoarthritis. Symptoms have worsened despite non operative treatment. Patient is now interested in proceeding with total knee arthroplasty for improved function, decreased pain and better quality of life. Prior to the procedure, risks and benefits of the operative and non operative treatment were discussed with the patient. After discussion of risks, benefits, and alternatives of surgery, informed consent was obtained and the operative site was marked. FINDINGS: Severe tricompartmental osteoarthritis with peripheral osteophytes. PROCEDURE: Patient was seen preoperatively and operative site was marked. Abductor canal and genicular nerve blocks were performed by anesthesia staff. Patient was then brought to the operating room, where spinal anesthesia was administered by the anesthesia staff. Patient was then placed into the supine position on the OR table and all bony prominences were well padded. Preoperative prophylactic antibiotics were administered intravenously. A tourniquet was placed on the thigh of the operative leg. The left lower extremity was prepped and draped in usual sterile fashion. A surgical time-out was performed confirming patient identity, surgical procedure, and surgical site. Operative extremity was elevated and exsanguinated with an Esmarch and tourniquet was inflated to 300 mmHg. The tourniquet remained inflated for 70 minutes before it was deflated. An anterior longitudinal incision was made and carried down through the subcutaneous tissues. The quadriceps tendon, medial patellar retinaculum, and patellar tendon were visualized. A medial quadriceps splitting parapatellar arthrotomy was performed. The proximal medial tibia was subperiosteal exposed distal to the joint line. The retropatellar fat pad was excised. The knee was flexed and patella everted. A curved osteotome was used to enter the semimembranous bursa medially at the level of the joint line. Medial and lateral tibial plateau osteophytes were removed with a rongeur. The medial meniscus was excised at the meniscal synovial junction. The anterior cruciate ligament was excised. A Z-retractor was placed medially and a right angle Hohmann retractor was placed anterior lateral to the lateral meniscus. A partial lateral meniscectomy was performed. The intramedullary drill was utilized to open the intramedullary canal. ?Intramedullary alignment guide was inserted. The distal femoral cutting block, set at 5 degrees of valgus with a distal femoral resection of 9 mm, was secured with pins, and the distal femoral osteotomy was performed. ?Using the posterior condylar referencing guide, femur was sized to a size 5, and pins were drilled for 3 degrees of external rotation, which corresponded with Whitesides line and the epicondylar axis. ?A 4-in-1 cutting jig was inserted at 3 degrees of external rotation. ?The anterior and posterior condylar cuts were performed followed by anterior and posterior chamfer cuts. The box cutting guide was then secured to the distal femur with pins and the box osteotomy was performed. ? ? We then turned our attention back to the tibia. ?Ranasall maneuver was performed and remainder of the lateral meniscus, medial meniscus, and PCL were excised. ?A retractor was placed along the posterior tibia. ?Extramedullary guide was secured around the ankle in line with the subcutaneous tibial crest. ?The tibial cutting block, set to remove 3 mm of bone from medial tibial plateau and 9 mm of bone from lateral tibial plateau, was secured proximally with pins. ?Tibial osteotomy was performed with care taken to protect the collateral ligaments. ?Spacer blocks were inserted, which confirmed symmetric flexion and extension gaps.? Curved osteotome was then used to remove osteophytes from the posterior condyles. The tibia was then sized to a size 5, and tibial base plate was secured. Tibia was then prepped with the appropriate drill and punch. Trial femur and tibial components with a 5 mm tibial polyethylene component were inserted. The knee was then brought out to full extension. ?The patella was everted and osteochondral junction was exposed. ?The patella measured 21 mm in thickness. ?The patellar osteotomy was performed, leaving 14 mm of remnant patella. ?Three lug holes were drilled for the 35 mm patella button and the patella button was inserted. The knee was brought through a full range of motion. ?Soft tissue tension, collateral ligament stability, and patella tracking were confirmed to be satisfactory. ?Trial components were then removed. ??After removing the trial components, a bone plug was placed in the distal femur. ? The exposed bony surfaces of the tibia, femur, and patella were then thoroughly irrigated with pulse lavage and dried. ? Cement was mixed on the back table and was subsequently introduced onto the tibia and tibial base plate. ?Tibial base plate was then impacted into position, and extruded cement was removed. ?Cement was then applied to the distal femur and posterior condyles of the femoral prosthesis. ?The femoral prosthesis was impacted into position, extruded cement was removed, and a trial polyethylene was inserted. ?Knee was then brought out to full extension for remainder of drying. ?Cement was then applied to the patella and patellar button. The patella button was clamped into position, and extruded cement was removed. ?While the cement was drying, knee was soaked in a sterile iodine solution. ? After the cement had dried, the knee was flexed and the trial tibial component was removed. The tourniquet was released . The soft tissues were then irrigated with pulse lavaged and hemostasis was achieved with electrocautery. A formal size 5, 5 mm rotating platform posterior stabilized polyethylene was then secured into position. ? The parapatellar arthrotomy was closed with #1 Vicryl [id number] interrupted sutures followed by a running #1 Stratafix suture. ?Subcutaneous soft tissues were again irrigated normal saline. Skin was closed with 2-0 Vicryl inverted, interrupted, subcutaneous stitches followed by running 2-0 Stratafix and 4-0 Monocryl subcuticular stitches. ?The incision was then sealed with Dermabond glue and sterile dressing was applied. ?The patient was then transferred to the recovery room in stable condition. POSTOPERATIVE PLAN: 1. Patient will be admitted to the hospital, where she will follow the postoperative total knee arthroplasty protocol. 2. Mobilize with physical therapy and occupational therapy. - Weight bear as tolerated left lower extremity. 3. Pain control: - Acetaminophen and Oxycodone for pain as needed. -IV pain medications for breakthrough pain -Ice for pain and swelling 4. Postoperative prophylactic antibiotics x2 doses 5. DVT prophylaxis: - aspirin 81 mg b.i.d. for 35 days - SCDs 6. Follow-up in Orthopedic Clinic in 1-2 weeks.
[2024-07-11] MEDS: MIDAZOLAM HCL 1 MG/ML inj IVP (07:32)
[2024-07-11] MEDS: fentaNYL 100 MCG/2 ML inj IVP (07:32)
--- NOTE | 2024-07-11 07:46 | SUR.PREOP ---
TIME?OUT:?0730 PT/RN/MDA?VERIFICATION?OF?SURGICAL?SITE,?PROCEDURE,?AND?CONSENT OBTAINED?PRIOR?TO?INVASIVE?PROCEDURE.
[2024-07-11] MEDS: CEFAZOLIN 2 GM INJ IVP (07:55)
[2024-07-11] MEDS: TRANEXAMIC ACID 100 MG/ML INJ 1000 MG IV (08:00)
--- NOTE | 2024-07-11 08:03 | P.NB_ITS ---
Nerve Block Nerve Block Time Seen by Provider: 07:40 Date Seen: 07/11/24 Type of block requested by surgeon for post-operative analgesia: adductor canal Side: left Time out performed: Yes Verification of patient name: Yes Verification of date of : Yes Site marking: site marked Name of person performing procedure: Nai Gustafson Continuous monitoring Was continuous monitoring of O2 sat, B/P, medical research assistant, recorded every 15 minutes?: Yes Procedure Checklist: sterile prep, needles and gloves Ultrasound guided. Images saved: Yes Medications given in 5ml increments after negative aspiration: Ropivicaine %: 0.5 mL: 20 Needle gauge: 20 Decadron (mg): 10 Precedex (mcg): 25 Patient tolerated procedure well: Yes Block Charges Block Charge (with Pro Fee): Femoral Nerve Use of Ultrasound Machine for Block: Yes- US Guidance/pain block
--- NOTE | 2024-07-11 08:06 | P.NB_ITS ---
Nerve Block Nerve Block Time Seen by Provider: 07:40 Date Seen: 07/11/24 Type of block requested by surgeon for post-operative analgesia: geniculars Side: left Time out performed: Yes Verification of patient name: Yes Verification of date of : Yes Site marking: site marked Name of person performing procedure: Kalpesh Continuous monitoring Was continuous monitoring of O2 sat, B/P, diagnostic cardiac sonographer, recorded every 15 minutes?: Yes Procedure Checklist: sterile prep, needles and gloves Ultrasound guided. Images saved: Yes Medications given in 5ml increments after negative aspiration: Ropivicaine %: 0.5 mL: 12 Needle gauge: 22 Decadron (mg): 10 Precedex (mcg): 25 Patient tolerated procedure well: Yes Block Charges Block Charge (with Pro Fee): Genicular Nerve Block Use of Ultrasound Machine for Block: No
--- NOTE | 2024-07-11 10:39 | CRLHL7_ITS ---
For Patients: As a result of the Cures Act, medical imaging exams and procedure reports are released immediately into your electronic medical record. You may view this report before your referring provider. If you have questions, please contact your health care provider. Indication: Surgery. Technique: Two views left knee Comparison: None. Findings: Left knee arthroplasty in anatomic alignment. No periprosthetic lucency or fracture. Expected postsurgical soft tissue changes. Impression: Left knee arthroplasty without radiographic evidence of complication. Dictated by Paul Bass MD @ 07/12/2024 12:05:13 PM (Electronically Signed)
--- NOTE | 2024-07-11 10:42 | W.ANESCHARGE ---
Anesthesia Charges Start Date/Time Anesthesia Start Date: 07/11/24 Anesthesia Start Time: 07:44 Stop Date/Time Anesthesia Stop Date: 07/11/24 Anesthesia Stop Time: 10:42
[2024-07-11] MEDS: CEFAZOLIN 2 GM in 0.9 % SODIUM CHLORIDE Mini-bag 100 ML IVPB ×2 (14:21→22:17)
[2024-07-11] MEDS: OXYCODONE 5 MG TABLET PO ×2 (14:21→20:18)
--- NOTE | 2024-07-11 19:22 | P.IMCN_ITS ---
Date of Consult Consult date: 07/11/24 Requesting Physician: Orthopedics Primary Care Provider: Ray Gomez MD Consult Narrative Narrative: HOSPITALIST CONSULT Procedure: Left total knee arthroplasty SURGEON: Emil Muse MD ANESTHESIA: Spinal EBL: 50 ml COMPLICATIONS: None evident The hospital medicine team was asked by the orthopedic surgery team to manage the patient's HTN, Hypothyroidism, obesity in the post procedure setting. There have been no perioperative complications. I have updated and reviewed the active medical problems, past medical history, past surgical history, social history, allergies and medications in our electronic EMR. This includes a cross reference to care everywhere in [facility] and with [facility] databases. PHYSICAL EXAM: CODE STATUS: FULL CODE CONSTITUTIONAL: Conversive, good historian. A/O. Knows setting and context. VITAL SIGNS: see record. HEENT: Normocephalic, atraumatic. PERRL, EOMI, conjunctivae pink, no scleral icterus. Ears and nose externally normal. Pharynx normal. NECK: No JVD. No carotid bruit, no thyromegaly, no adenopathy. CHEST: Clear to auscultation bilaterally HEART: S1 and S2 normal. ABDOMEN: Flat, soft, nontender. Normal bowel sounds. Moderately obese. EXTREMITIES: No edema. MUSCULOSKELETAL: left knee SDI. NEURO: Cranial nerves intact. Mentation normal. Normal affect. SKIN: No rashes, petechiae, concerning changes PSYCHIATRIC: Mentation normal. INVESTIGATIONS: EMR Reviewed; Pre-OP Reviewed DISPOSITION: DVT: Agree with Ortho team decision GI: PO intake [facility] Medical History (Updated 07/11/24 @ 19:59 by Mandy Muse MD) Obesity (BMI 35.0-39.9 without comorbidity) ?E66.9 - Obesity, unspecified (ICD-10) Mixed hyperlipidemia ?E78.2 - Mixed hyperlipidemia (ICD-10) Primary hypertension ?I10 - Essential (primary) hypertension (ICD-10) Bilateral primary osteoarthritis of knee ?M17.0 - Bilateral primary osteoarthritis of knee (ICD-10) Sacroiliac joint dysfunction ?M53.3 - Sacrococcygeal disorders, not elsewhere classified (ICD-10) Osteopenia ?M85.80 - Other specified disorders of bone density and structure, unspecified site (ICD-10) Insomnia ?G47.00 - Insomnia, unspecified (ICD-10) Hypothyroidism ?E03.9 - Hypothyroidism, unspecified (ICD-10) Chronic low back pain ?M54.50 - Low back pain, unspecified (ICD-10) ?G89.29 - Other chronic pain (ICD-10) Allergic rhinitis ?J30.9 - Allergic rhinitis, unspecified (ICD-10) Surgical History (Updated 07/11/24 @ 19:59 by Mandy Muse MD) Status post total right knee replacement (04/04/24) ?Z96.651 - Presence of right artificial knee joint (ICD-10) History of shoulder surgery (2000) ?Z98.890 - Other specified postprocedural states (ICD-10) History of endometrial ablation (10/02/08) ?Z98.890 - Other specified postprocedural states (ICD-10) History of appendectomy (1967) ?Z90.49 - Acquired absence of other specified parts of digestive tract (ICD- 10) Family History (Updated 09/11/23 @ 21:09 by Ray Gomez MD) Father Stroke Mother Uterine cancer Sister Heart disease Brother High blood pressure Social History (Updated 08/12/23 @ 09:53 by Lindy Clark ~ [facility], [facility]) Narrative: Single, 2 kids, retired Non-smoker Social EtOH What is your current living situation?: I presently have a place to live Problems where you live: no known problems In the past 12 months, utilities in danger of being shut off: no In past 12 months, lack of transportation kept you from medical appts, meetings, work, or getting things needed for daily living: no In the past 12 mos, have been you worried that your food would run out before you had money to buy more?: never true In the past 12 mos, the food you bought just didn't last and you didn't have money to buy more?: never true Highest level of school completed/degree received: Bachelor's degree Smoking Status: Never smoker Do you use any of these nicotine containing products: None Second hand tobacco smoke exposure: No How often do you have a drink containing alcohol: monthly or less How many standard drinks containing alcohol do you have on a typical day: 1 or 2 How often do you have six or more drinks on one occasion: Never AUDIT-C Alcohol total score: 1 Non-prescribed substance use: denies use Caffeine: Yes How often does anyone, including family, friends and others, physically hurt you : never How often does anyone, including family, friends and others, insult or talk down to you: never How often does anyone, including family, friends and others, threaten you with harm: never How often does anyone, including family, friends and others, scream or curse at you: never Little interest or pleasure in doing things: not at all Feeling down, depressed, or hopeless: not at all service: No Meds Home Medications and Allergies Home Medications ?Medication ?Instructions ?Recorded ?Confirmed ?Type calcium carbonate 500 mg-vitamin 1 tab PO DAILY 05/13/22 07/11/24 History D3 3.125 mcg (125 unit) tablet multivitamin 1 tab PO DAILY 03/16/24 07/11/24 History ibuprofen 200 mg tablet 200 mg PO Q6H PRN 06/26/24 07/11/24 History cetirizine 10 mg tablet (Allergy 10 mg PO QDAY PRN 06/27/24 07/11/24 History Relief (cetirizine)) Allergies Allergy/AdvReac Type Severity Reaction Status Date / Time erythromycin base Allergy Severe Nausea Verified 07/11/24 06:52 propylene glycol Allergy Severe Nausea Verified 07/11/24 06:52 azithromycin Allergy Unknown itching Verified 07/11/24 06:52 edetic acid Allergy Nausea Verified 07/11/24 06:52 Exam Const: Vital Signs, click to edit/add: Vital Signs - 24 hr 07/11/24 07:36 07/11/24 10:37 07/11/24 10:45 Temperature 98.0 F 97.7 F Pulse Rate 70 70 69 Respiratory Rate 16 14 16 Blood Pressure 148/81 H 112/60 109/61 Pulse Oximetry 99 95 94 Oxygen Delivery Me thod Nasal Cannula Room Air Room Air Oxygen Flow Rate 2 07/11/24 10:50 07/11/24 10:55 07/11/24 11:00 Temperature 97.5 F L Pulse Rate 64 67 65 Respiratory Rate 14 14 18 Blood Pressure 112/65 113/63 119/59 L Pulse Oximetry 95 95 94 Oxygen Delivery Me thod Room Air Room Air Room Air Oxygen Flow Rate 07/11/24 11:05 07/11/24 11:10 07/11/24 11:20 Temperature 97.5 F L 96.2 F L Pulse Rate 65 66 62 Respiratory Rate 14 14 16 Blood Pressure 118/63 118/60 127/72 Pulse Oximetry 94 94 92 Oxygen Delivery Me thod Room Air Room Air Room Air Oxygen Flow Rate 07/11/24 11:20 07/11/24 11:30 07/11/24 11:45 Temperature 96.5 F L 96.7 F L Pulse Rate 64 63 Respiratory Rate 16 16 16 Blood Pressure 134/77 142/76 H Pulse Oximetry 92 90 91 Oxygen Delivery Me thod Room Air Room Air Room Air Oxygen Flow Rate 07/11/24 12:00 07/11/24 12:15 07/11/24 12:30 Temperature 97.0 F L Pulse Rate 71 67 66 Respiratory Rate 16 18 16 Blood Pressure 133/74 144/78 H 149/86 H Pulse Oximetry 93 95 96 Oxygen Delivery Me thod Room Air Room Air Room Air Oxygen Flow Rate 07/11/24 13:00 07/11/24 13:30 07/11/24 14:30 Temperature 97.3 F L 97.5 F L Pulse Rate 67 71 70 Respiratory Rate 16 18 16 Blood Pressure 151/84 H 145/65 H 149/68 H Pulse Oximetry 95 97 94 Oxygen Delivery Me thod Room Air Room Air Room Air Oxygen Flow Rate 07/11/24 15:30 07/11/24 15:30 07/11/24 16:30 Temperature 97.4 F L Pulse Rate 68 66 Respiratory Rate 18 18 16 Blood Pressure 151/67 H 145/69 H Pulse Oximetry 96 96 [address] [facility] Air Room Air Oxygen Flow Rate 07/11/24 17:30 Temperature 97.6 F Pulse Rate 70 Respiratory Rate 18 Blood Pressure 148/74 H Pulse Oximetry 93 Oxygen Delivery Me thod Room Air Oxygen Flow Rate Assessment and Plan Assessment and plan (1) Status post total left knee replacement: Problem comment: 07/11/24 Dr. Muse [facility] medicine team is happy to follow thru until discharge. Agree with Aspirin BID for VTE Status: Acute (2) Primary osteoarthritis of left knee: Problem comment: s/p TKA June 2024 Status: Acute (3) Primary hypertension: Problem comment: we will use discretion when ordering morning BP meds. Losartan is on hold. Status: Acute (4) Hypothyroidism: Problem comment: continue replacement Status: Acute (5) Obesity (BMI 35.0-39.9 without comorbidity): Status: Acute
[2024-07-11] MEDS: SENNOSIDES 1 TAB TABLET 2 TAB PO (20:18)
[2024-07-11] MEDS: ASPIRIN 81 MG TABLET EC PO (20:18)
[2024-07-12] MEDS: OXYCODONE 5 MG TABLET PO ×3 (00:25→08:33)
[2024-07-12 03:00] VITALS: BP 170/80; PULSE 86; RESP 18; TEMP 36.7; O2SAT 92
[2024-07-12] MEDS: ACETAMINOPHEN 500 MG TABLET 1000 MG PO ×2 (04:05→10:57)
--- NOTE | 2024-07-12 06:06 | PC.NURSE ---
SHIFT NOTE -: Pt is pleasant and cooperative, A&O. Afebrile, oxygen saturations >90% on RA. Reports adequate pain control with PRN Oxycodone and scheduled Tylenol, pt reported discomfort from her CASSANDRA wrap on her leg, removed at 0500 per pt request. Surgical dressing C/D/I, CMS intact. Ice pack on continuously. Up with a SBA and walker, tolerates very well. Denies SOB, CP and N/V. IS to 1500. Pt plans to d/c home with her today.
[2024-07-12] MEDS: LEVOTHYROXINE 125 MCG TABLET PO (06:29)
[2024-07-12 08:28] VITALS: BP 139/66; PULSE 78; RESP 18; TEMP 36.8; O2SAT 98
[2024-07-12] MEDS: SENNOSIDES 1 TAB TABLET 2 TAB PO (08:32)
[2024-07-12] MEDS: hydroCHLOROthiazide 12.5 MG CAPSULE PO (08:32)
[2024-07-12] MEDS: MULTIVITAMIN/MINERALS 1 TABLET 1 TAB PO (08:32)
--- NOTE | 2024-07-12 08:32 | P.ORPN_ITS ---
Subjective Subjective Time Seen by Provider: 07:20 Date Seen: 07/12/24 Principal diagnosis: Day 1 s/p left TKA Interval history: Ghulam is doing very well and resting comfortably in bed. No acute concerns. Pain is well managed with scheduled oral pain medications and frequent icing. Ghulam speaks highly of her entire experience at [facility]. Denies: chest pain, SOB, fever, chills, nausea, vomiting, numbness/tingling distally. Denies postop bowel movement, but admits to flatulence. Outpatient PT scheduled to begin Tuesday. Ortho Exam Narrative Exam Narrative: Incision/Dressing: Dressing appears clean and dry. No drainage present. Mepilex intact. Left knee appears moderately swollen but supple with no obvious erythema, fluctuance or excessive warmth. No ecchymosis or erythematous streaking. Warmth around the wound is appropriate. Ice is being utilized as needed. CMS: Intact distally with 2+ Dorsalis pedis and Posterior Tibial pulses. 5/5 motor strength dorsal and plantar flexion. Confirmed sensation distally. Intact straight leg raise. Calf: Bilateral calves are supple, with no swelling, pain, tenderness, erythema, discoloration or coolness to the touch. Constitutional: Patient is alert and oriented x3. Patient is in no acute distress and converses without labored breathing. Patient is able to make decisions and demonstrates good insight. Patient is pleasant and cooperative. Affect is full range and appropriate for the circumstances. Const Vital Signs, click to edit/add: Vital Signs - 24 hr 07/11/24 10:37 07/11/24 10:45 07/11/24 10:50 Temperature 97.7 F Pulse Rate 70 69 64 Pulse Rate [Left Pulse Oximeter] Respiratory Rate 14 16 14 Blood Pressure 112/60 109/61 112/65 Blood Pressure [Right Arm] Pulse Oximetry 95 94 95 Oxygen Delivery Method Room Air Room Air Room Air 07/11/24 10:55 07/11/24 11:00 07/11/24 11:05 Temperature 97.5 F L Pulse Rate 67 65 65 Pulse Rate [Left Pulse Oximeter] Respiratory Rate 14 18 14 Blood Pressure 113/63 119/59 L 118/63 Blood Pressure [Right Arm] Pulse Oximetry 95 94 94 Oxygen Delivery Method Room Air Room Air Room Air 07/11/24 11:10 07/11/24 11:20 07/11/24 11:20 Temperature 97.5 F L 96.2 F L Pulse Rate 66 62 Pulse Rate [Left Pulse Oximeter] Respiratory Rate 14 16 16 Blood Pressure 118/60 127/72 Blood Pressure [Right Arm] Pulse Oximetry 94 92 92 Oxygen Delivery Method Room Air Room Air Room Air 07/11/24 11:30 07/11/24 11:45 07/11/24 12:00 Temperature 96.5 F L 96.7 F L Pulse Rate 64 63 71 Pulse Rate [Left Pulse Oximeter] Respiratory Rate 16 16 16 Blood Pressure 134/77 142/76 H 133/74 Blood Pressure [Right Arm] Pulse Oximetry 90 91 93 Oxygen Delivery Method Room Air Room Air Room Air 07/11/24 12:15 07/11/24 12:30 07/11/24 13:00 Temperature 97.0 F L 97.3 F L Pulse Rate 67 66 67 Pulse Rate [Left Pulse Oximeter] Respiratory Rate 18 16 16 Blood Pressure 144/78 H 149/86 H 151/84 H Blood Pressure [Right Arm] Pulse Oximetry 95 96 95 Oxygen Delivery Method Room Air Room Air Room Air 07/11/24 13:30 07/11/24 14:30 07/11/24 15:30 Temperature 97.5 F L Pulse Rate 71 70 Pulse Rate [Left Pulse Oximeter] Respiratory Rate 18 16 18 Blood Pressure 145/65 H 149/68 H Blood Pressure [Right Arm] Pulse Oximetry 97 94 96 Oxygen Delivery Method Room Air Room Air Room Air 07/11/24 15:30 07/11/24 16:30 07/11/24 17:30 Temperature 97.4 F L 97.6 F Pulse Rate 68 66 70 Pulse Rate [Left Pulse Oximeter] Respiratory Rate 18 16 18 Blood Pressure 151/67 H 145/69 H 148/74 H Blood Pressure [Right Arm] Pulse Oximetry 96 92 93 Oxygen Delivery Method Room Air Room Air Room Air 07/11/24 20:00 07/11/24 23:00 07/11/24 23:00 Temperature 97.6 F Pulse Rate Pulse Rate [Left Pulse Oximeter] 66 66 Respiratory Rate 16 16 16 Blood Pressure Blood Pressure [Right Arm] 149/79 H Pulse Oximetry 97 97 Oxygen Delivery Method Room Air Room Air 07/11/24 23:36 07/12/24 03:00 07/12/24 08:28 Temperature 97.7 F 98.1 F 98.3 F Pulse Rate Pulse Rate [Left Pulse Oximeter] 78 86 78 Respiratory Rate 16 18 18 Blood Pressure Blood Pressure [Right Arm] 146/75 H 170/80 H 139/66 Pulse Oximetry 98 92 98 Oxygen Delivery Method Room Air Room Air Documenting provider has reviewed patient's vital signs: yes Assessment and Plan Assessment and plan (1) Status post total left knee replacement: Problem details: DOS: 07/11/24; Dr. Muse Status: Acute Plan - Complete 23 hour perioperative antibiotics. - PT/OT consults for education and assistance. - Weight bear as tolerated with a walker for assistance. - Prescribed analgesics as needed. Patient is content with current narcotic medications. Minimize narcotic pain medication use; wean off and discontinue as soon as possible. Discharge pain medications include acetaminophen and oxycodone. - DVT prophylaxis: aspirin 81 mg BID x 35 days. Also, frequent ambulation and ankle pumps when sedentary. - Social consult for discharge planning. - Anticipate patient will be discharged to home later this morning if the patient remains medically stable, pain is controlled and is safe with ambulation. - Return to clinic in 1 week for a wound check. Mepilex dressing will be removed at this appointment. Remove sooner if dressing becomes saturated. - Return to clinic in [address] Muse. - Phone Orthopedics with any questions or concerns. [phone]
[2024-07-12] MEDS: ASPIRIN 81 MG TABLET EC PO (08:33)
[2024-07-12] MEDS: CELECOXIB 200 MG CAPSULE PO (08:33)
--- NOTE | 2024-07-12 08:55 | REH.OT ---
OT orders received for evaluate and treat s/p L TKA. Patient has all AE/DME needed at home and has no other questions/concerns at this time as this is patients second knee replacement. Patient completed dressing independently. No skilled OT intervention warranted or provided at this time.
[2024-07-12 10:59] VITALS: PULSE 75; RESP 18; O2SAT 93
--- NOTE | 2024-07-12 11:34 | PC.NURSE ---
Discharge was completed by Lizeth PRABHAKAR. L knee dressing is CDI with no drianage. Pain is controlled with tylenol and PRN oxy. Ice pack to the knee. All discharge was sent with the patient as well as her belongings. Tammy PRABHAKAR BSN
== END 2024-07-12 11:02 | disposition home or self-care (01) ==
LOC: OR 06:35 → MEDSURG 06:37
PROVIDERS: PCP Family Medicine; Visit Provider Orthopaedic Surgery
PROC: (CPT 27447; principal; 2024-07-11 08:00)
DX: M17.12 Unilateral primary osteoarthritis, left knee (principal); G89.18 Other acute postprocedural pain; I10 Essential (primary) hypertension; E03.9 Hypothyroidism, unspecified; E66.9 Obesity, unspecified; Z68.36 Body mass index [BMI] 36.0-36.9, adult; E78.2 Mixed hyperlipidemia
CPT/HCPCS: 27447; 01402; 64447; 64454; 73560; 76942; 97110; 97116; 97161; 97530; A9153; A9270; C1713; C1776; J0690; J1100; J2250; J2405; J2704; J2795; J3010; J7120

== ENCOUNTER 2024-10-04 13:00 | Outpatient (RCR) | payer MEDICARE, SELFPAY ==
--- NOTE | 2024-03-26 14:32 | PT.OPEX ---
PT [place] Outpatient Eval PT [facility] Outpatient Eval Start: 03/26/24 10:01 Freq: Status: Active Protocol: Document 03/26/24 12:49 MLS (Rec: 03/26/24 14:30 MLS [id number]) E-signed By Radha Martinez DPT Physical Therapy Outpatient Evaluation Insurance Information Recert Due Date 06/23/24 Insurance Name Medicare B,[facility] Medical Diagnosis M17.11 unilateral primary OA, right knee Z96.651 presence of right artificial knee joint s/p Right TKA 04/04/24 Treating Diagnosis Right TKA 04/04/[address] Muse Subjective Subjective Patient is a 69 year old female who presents to physical therapy for her pre- op appointment prior to right TKA on 04/04/24. She reports that her knee feels tight and stiff. She states that she is currently not exercising. She states that her right knee pain started about 2 years ago but got worse last year. She states that she has had a couple injections. Significant past medical history includes previous right rotator cuff surgery and arthritis. Pain Comments Today: 8/10 on a 0-10 pain scale with 10 = extreme pain Current Work Status Retired Precautions Therapy Limitations/Systems Review Not Limited Objective Other/Pertinent Objective GAIT/FUNCTIONAL MOBILITY Independent KNEE ROM Left: Grossly tested WNL Right: Extension/Flexion: -12- 110 HIP ROM Grossly tested WNL B LLE MMT: Hip flexion: R 4-/5 L 4/5 Hip abduction: R 4-/5 L 4/5 Hip extension: R 4/5 L 4/5 Knee flexion: R 4/5 L 4/5 Knee extension: R 4/5 L 4/5 TX: Reviewed/demonstrated on frequency to perform HEP post operatively including: ankle pumps supine heel slide with strap supine quad sets supine SAQ supine SLR w quad set seated LAQ seated knee flexion AAROM supine knee extension stretch on towel roll Extensive discussion and education on what to expect post operatively. Time was spent discussing home modifications, Assistive devices, pain control, fall prevention, hospital stay time line, and assist needed for activities post surgically. Pt questions were answered and demonstrated understanding. Assessment Assessment/Impression Pt is a 69 year old female who presents to PT for her pre-op appointment prior to her right TKA on 04/04/24. Patient also has notable objective findings including limited ROM and decreased strength which are also likely contributing to the problem. Patient is a good candidate for skilled therapy to target deficits described above. Skilled PT intervention is necessary for use of therapeutic exercise manual therapy, neuromuscular re-education, gait training, and therapeutic activity. Functional impairments include difficulty with: standing, walking, exercising, driving, sleeping and ADLS. See appropriate sections of PT eval for complete list of goals and POC. D/C plan and criteria is for pt to achieve the goals as listed below or until max rehab potential is met. Pt was agreeable with plan of care and goals established. Primary Functional Limitations standing walking driving exercising ADLs sleeping Plan of Care Rehabilitation Potential Good Physical Therapy Goals Within 10-12 weeks: 1) Pt will improve knee to 120 degrees for improved sit to stand transfers 2) Pt will demonstrate negative extensor lag during straight leg raise exercise with ability to complete at least 15 reps with 5 sec hold to improve strength for ambulation 3) Patient will demonstrate/ report ability to walk for 15 minutes w/SPC with pain level <1/10, to allow for community and household ambulation. 4) Pt will be indep with HEP for intermodal dispatcher management of pain/symptoms 5) Patient will ascend/descend at least 10 steps using single rail and reciprocal pattern to improve ease of mobility at home/community 7) Patient will demonstrate/ report ability to walk for 30 minutes w/o AD with pain level <1/10, to allow for community and household ambulation. Coordination/Communication With Referral Source Treatment Plan/Direct Interventions Gait Training,Manual Therapy, Neuromuscular Re-ed, Therapeutic Activities, Therapeutic Exercises Patient Will Be Discharged From Therapy Independently Progressing Evaluation Billing Untimed Code Treatment Minutes 35 Complexity Low Certification Information Physician Comment/Change : Physician NPI Number #
--- NOTE | 2024-07-17 15:41 | PT.OPEX ---
[facility] PT [facility] Outpatient Eval Start: 03/26/24 10:01 Freq: Status: Active Protocol: Document 07/17/24 09:07 MLS (Rec: 07/17/24 15:38 MLS [id number]) E-signed By Radha Martinez DPT Physical Therapy Outpatient Evaluation Insurance Information Recert Due Date 10/14/24 Insurance Name Medicare B,[employer] Medical Diagnosis Z96.652 Presence of left artificial knee joint s/p left TKA on 07/11/24 Treating Diagnosis TKA protocol Tubigrip size H Referring MD Dr. Muse Subjective Preferred Name Ghulam Subjective Patient is a 69 year old female who presents to physical therapy with signs and symptoms consistent with s /p left TKA on 07/11/24. She states that she did stay in the hospital for one night. She has a follow up with her physician on . She states that she was really sick on Tuesday. She reports that she was throwing up bile on the way home from the hospital . She was up sick almost all of night. She reports that she was able to sleep on Tuesday. She reports that her surgery took longer on this knee and they had found several bone spurs. She is taking one oxy every four-five hours. Significant past medical history includes right rotator cuff surgery, right TKA () and arthritis. Patient would like to achieve full range of motion and less pain through physical therapy sessions. Pain Comments Today: 5-6/10 on a 0-10 pain scale with 10 = extreme pain At its worst: 10/10 At its best: 4/10 Date of Surgery (If applicable) 07/11/24 Current Work Status Retired Precautions Weight Bearing Status Full Weight Bearing Therapy Limitations/Systems Review Not Limited Objective Other/Pertinent Objective Gait; Ambulates in with FWW Moderate effusion and bruising noted KNEE ROM Extension/Flexion: 0-65 beginning of session, 0-80 with OP end of session Unable to perform SLR TX: Reviewed HEP including: long sitting quad ankle pumps supine heel slide with strap supine quad sets supine SAQ SLR with quad set seated long arc quad seated knee flexion AAROM supine knee extension stretch on towel roll Manual OP stretching into flexion and extension Assessment Assessment/Impression Pt is a 69 year old female who presents s/p left TKA on 07/11. Patient also has notable objective findings including limited ROM, tenderness to palpation, and decreased strength which are also likely contributing to the problem. Patient is a good candidate for skilled therapy to target deficits described above. Skilled PT intervention is necessary for use of therapeutic exercise manual therapy, neuromuscular re- education, gait training, and therapeutic activity. Functional impairments include difficulty with: standing, walking, exercising, sleeping, driving and ADLs. See appropriate sections of PT eval for complete list of goals and POC. D/C plan and criteria is for pt to achieve the goals as listed below or until max rehab potential is met. Pt was agreeable with plan of care and goals established. Primary Functional Limitations standing walking driving exercising ADLs sleeping Plan of Care Rehabilitation Potential Good Physical Therapy Goals Within 10-12 weeks: 1) Pt will improve knee AROM at least 0 to 120 for improved sit to stand transfers 2) Pt will demonstrate negative extensor lag during straight leg raise exercise with ability to complete at least 15 reps with 5 sec hold to improve strength for ambulation 3) Patient will demonstrate/ report ability to walk for 15 minutes w/SPC with pain level <1/10, to allow for community and household ambulation. 4) Pt will be indep with HEP for intermediate teacher management of pain/symptoms 5) Patient will ascend/descend at least 10 steps using single rail and reciprocal pattern to improve ease of mobility at home/community 7) Patient will demonstrate/ report ability to walk for 15 minutes w/o AD with pain level <1/10, to allow for community and household ambulation. Coordination/Communication With Referral Source Treatment Plan/Direct Interventions Gait Training,Manual Therapy, Neuromuscular Re-ed, Therapeutic Activities, Therapeutic Exercises Patient Will Be Discharged From Therapy Independently Progressing Evaluation Billing Untimed Code Treatment Minutes 20 Complexity Low Certification Information Provider Signature Required Yes Provider Signature Shows Agreement With POC & Medical Necessity Physician NPI Number Write NPI# Here Physician Comment/Change : Physician Signature & Date Requested Please Sign/Date Here
== END 2024-10-30 13:12 | disposition home or self-care (01) ==
PROVIDERS: PCP Family Medicine; Visit Provider Orthopaedic Surgery
DX: Z96.651 Presence of right artificial knee joint (principal); Z96.652 Presence of left artificial knee joint; Z51.89 Encounter for other specified aftercare
CPT/HCPCS: 97110; 97140; 97161; 97164

== ENCOUNTER 2024-11-08 10:05 | Outpatient (CLI) | payer MEDICARE, SELFPAY ==
--- NOTE | 2024-11-08 10:15 | CRLHL7_ITS ---
For Patients: As a result of the Cures Act, medical imaging exams and procedure reports are released immediately into your electronic medical record. You may view this report before your referring provider. If you have questions, please contact your health care provider. BILATERAL SCREENING MAMMOGRAM WITH COMPUTER-AIDED DETECTION AND TOMOSYNTHESIS TECHNIQUE: CC and MLO views were obtained. These mammographic images have been obtained using full-field digital technique. These mammographic images were interpreted with the benefit of computer-aided detection. Breast Tomosynthesis was used in this interpretation. COMPARISON FILM: 09/12/23, 07/12/22, 07/01/21. FINDINGS: There are scattered areas of fibroglandular density IMPRESSION: There is no radiographic evidence for malignancy. ASSESSMENT: BI-RADS Category 1: Negative RECOMMENDATION: Routine screening mammogram in 1 year. A lay language report of this examination will be provided to the patient. Ray Bhakta M.D. Diagnostic Radiologist [email or web address] UVALDO/lizbet / bM/Dictated by: Ray Bhakta MD @ 11/08/2024 11:28:00 AM (Electronically Signed)
== END 2024-11-08 10:06 | disposition home or self-care (01) ==
LOC: MAMMO 10:05
PROVIDERS: PCP Family Medicine; Visit Provider Family Medicine
DX: Z12.31 Encounter for screening mammogram for malignant neoplasm of breast (principal)
CPT/HCPCS: 77063; 77067

== ENCOUNTER 2025-03-26 16:47 | Outpatient (CLI) | payer MEDICARE, SELFPAY | END 2025-03-26 16:48 | disposition home or self-care (01) | PROVIDERS: PCP Family Medicine; Visit Provider Family Medicine | DX: I10 Essential (primary) hypertension (principal); E03.9 Hypothyroidism, unspecified; E66.9 Obesity, unspecified; R19.7 Diarrhea, unspecified; M17.0 Bilateral primary osteoarthritis of knee | CPT/HCPCS: 80053; 84443; 85025 ==

== ENCOUNTER 2025-09-23 08:41 | Outpatient (CLI) | payer MEDICARE, SELFPAY | END 2025-09-23 08:42 | disposition home or self-care (01) | PROVIDERS: PCP Family Medicine; Visit Provider Family Medicine | DX: I10 Essential (primary) hypertension (principal); E03.9 Hypothyroidism, unspecified | CPT/HCPCS: 80048; 80061; 84443 ==

== ENCOUNTER 2025-11-13 09:54 | Outpatient (CLI) | payer MEDICARE, SELFPAY ==
--- NOTE | 2025-11-13 10:15 | CRLHL7_ITS ---
For Patients: As a result of the Century Cures Act, medical imaging exams and procedure reports are released immediately into your electronic medical record. You may view this report before your referring provider. If you have questions, please contact your health care provider. INDICATION: BILATERAL SCREENING MAMMOGRAM, ASYMPTOMATIC 70 Y/O FEMALE COMPARISON: 11/08/2024, 09/12/2023, 07/12/2022 TECHNIQUE: Digital mammogram in CC and MLO projections including computer-aided detection (CAD) and tomosynthesis. BREAST COMPOSITION: The breasts are heterogeneously dense, which may obscure small masses. FINDINGS: No suspicious findings. ASSESSMENT: BI-RADS 2 Benign RECOMMENDATION: Annual screening mammogram. A lay language report of this examination will be provided to the patient. Dictated by: Ray Bhakta MD @ 11/13/2025 11:40:44 (Electronically Signed)
--- NOTE | 2025-11-13 14:00 | CRLHL7_ITS ---
For Patients: As a result of the Century Cures Act, medical imaging exams and procedure reports are released immediately into your electronic medical record. You may view this report before your referring provider. If you have questions, please contact your health care provider. XR DXA Bone Mineral Density (BMD) Reason for exam: Other specified disorders of bone density. Current height (in): 64.0. Weight (lb): 216.0. Menopause age: 47. Ethnicity: White. 1. Have you had a previous hip or vertebral fracture? No. 2. Have you had any fractures during your adult life which did not result from significant trauma (e.g., auto accident)? No. 3. Did either of your parents have a hip fracture? No. 4. Do you smoke? No. 5. Have you ever taken Glucocorticoids? No. 6. Do you have rheumatoid arthritis? No. 7. Do you have secondary osteoporosis? No. 8. Do you drink 3 or more alcoholic drinks per day? No. 9. Are you being treated for osteoporosis? No. 10. Have you ever taken any of the following medications: Actonel, Evista, Fosamax, Miacalcin, Reclast, Boniva, Forteo, HRT (i.e. estrogen/hormone therapy), Protelos, Prolia, Vitamin D, Calcium, other ??? please specify. ANSWER: Yes, vitamin D, calcium. 11. Do you have any of the following medical conditions: Anorexia or bulimia, asthma or emphysema, end stage renal disease, hyperparathyroidism, any seizure disorders, cancer, inflammatory bowel diseases, hysterectomy, other ??? please specify. ANSWER: No. 12. What was your maximum height (inches)? 64.5. 13. Do you perform weight bearing exercise regularly? No. 14. Do you regularly consume dairy products? Yes. 15. Do you drink caffeinated beverages? Yes. 16. At what age did your period start? 10. 17. Are you premenopausal? No. 18. How many full term pregnancies have you had? 2. 19. Have you ever missed your period for more than 6 months in a row (not including or menopause)? No. TECHNIQUE: Bone mineral density study was performed using the [employer]. FINDINGS: The results of the study expressed as bone mineral density (BMD) are as follows: Lumbar spine L1 to L4: BMD: 1.069 g/cm2. T-score: 0.2. Z-score: 2.4. Neck Left: BMD: 0.705 g/cm2. T-score: -1.3. Z-score: 0.6. Right: BMD: 0.753 g/cm2. T-score: -0.9. Z-score: 1.0. Total Left: BMD: 0.914 g/cm2. T-score: -0.2. Z-score: 1.4. Right: BMD: 0.959 g/cm2. T-score: 0.1. Z-score: 1.7. IMPRESSION: Osteopenia. FRAX 10-year Fracture Risk Major Osteoporotic Fracture: 9.0 percent Hip Fracture: 1.2 percent Reported Risk Factors: [place] () Neck BMD=0.705, BMI=37.1 Ray Bhakta M.D. Diagnostic Radiologist [email or web address] bM/Dictated by: Ray Bhakta MD @ 11/13/2025 11:12:00 AM (Electronically Signed)
== END 2025-11-13 09:55 | disposition home or self-care (01) ==
LOC: MAMMO 09:55
PROVIDERS: PCP Family Medicine; Visit Provider Family Medicine
DX: Z12.31 Encounter for screening mammogram for malignant neoplasm of breast (principal); R92.333 Mammographic heterogeneous density, bilateral breasts; M85.89 Other specified disorders of bone density and structure, multiple sites
CPT/HCPCS: 77063; 77067; 77080